=== PATIENT | male | born 1990 | race Caucasian/White ===

== ENCOUNTER 2017-05-24 16:01 | Emergency (ER) | payer MEDICAID ==
[~2017-05-24] VITALS: Ht 188 cm; Wt 72.6 kg
[2017-05-24 16:10] VITALS: BP 132/82
== END 2017-05-24 17:29 | disposition home or self-care (01) ==
LOC: ER 16:01
DX: S60.222A Contusion of left hand, initial encounter (principal); W23.0XXA Caught, crushed, jammed, or pinched between moving objects, initial encounter; Y93.89 Activity, other specified; Y99.8 Other external cause status; Y92.89 Other specified places as the place of occurrence of the external cause
CPT/HCPCS: 73130